=== PATIENT | female | born 1995 | race American Indian/Alaskan Native ===

== ENCOUNTER 2019-08-19 13:35 | Emergency (ER) | payer OTHER ==
[2019-08-19 15:19] VITALS: BP 110/62
--- NOTE | 2019-08-19 15:23 | Event Note ---
ED Screening Note ED Screening Note: 24 y/o c/o of chest pain after trip and fall landing on tile floor at work around 12 noon today. since had pain to chest worse with rom. This initial assessment/diagnostic orders/clinical plan/treatment(s) is/are subject to change based on patients health status, clinical progression and re- assessment by fellow clinical providers in the ED. Further treatment and workup at subsequent clinical providers discretion. Patient/guardian urged not to elope from the ED as their condition may be serious if not clinically assessed and managed. Initial orders include:
--- NOTE | 2019-08-19 16:03 | XRay Report ---
CHEST 2 VIEWS INDICATION: chest pain after fall. COMPARISON: None. FINDINGS: Support devices: None. Heart: Within normal limits. Pulmonary vasculature: Normal. Lungs/pleura: No acute air space or interstitial disease. No pneumothorax. Additional findings: Thoracic scoliosis. No fracture. IMPRESSION: 1. No acute findings. Signer Name: Bernard Carpenter MD Signed: 08/19/2019 3:58 PM Workstation Name: [id number]
--- NOTE | 2019-08-19 16:19 | Emergency Department Report ---
HPI - General Chief Complaint: Fall Time Seen by Provider: 08/19/19 15:21 - HPI HPI: 24-year-old -[place] female presents to the emergency department with a complaint of some midsternal chest discomfort after tripping and falling at work and hitting her chest on the hard floor. She also hit her left leg, around the randall, and says that she had some mild bruising and swelling but that has since improved. She has been ambulatory without any difficulty since this incident. She took some Aleve for her symptoms with some improvement. She denies any shortness of breath. She denies hitting her head or any loss of consciousness. No past medical history. ED Past Medical Hx - Past Medical History Previous Medical History?: No - Surgical History Past Surgical History?: No - Social History Smoking Status: Never Smoker Substance Use Type: None ED Review of Systems ROS: Stated complaint: FALL INJURY/CHEST PAIN Other details as noted in HPI Comment: All other systems reviewed and negative Constitutional: denies: malaise, weakness Respiratory: denies: cough, shortness of breath Cardiovascular: chest pain (chest wall pain). denies: syncope Gastrointestinal: denies: abdominal pain Musculoskeletal: myalgia. denies: back pain, joint swelling Skin: denies: rash, pruritus Neurological: denies: headache, weakness Physical Exam - Physical Exam Vital Signs: Vital Signs 08/19/19 15:16 Temperature 98.8 F Pulse Rate 72 Respiratory 18 Rate Blood Pressure 110/62 O2 Sat by Pulse 96 Oximetry Physical Exam: GENERAL: The patient is well-developed well-nourished. HEENT: Normocephalic. Atraumatic. Patient has moist mucous membranes. EYES: Extraocular motions are intact. NECK: Supple. Trachea is midline. CHEST/LUNGS: Clear to auscultation. There is no respiratory distress noted. There is some reproducible midsternal chest wall pain to palpation but no crepitus or deformity. HEART/CARDIOVASCULAR: Regular. There is no tachycardia. There is no murmur. ABDOMEN: There is no abdominal distention. SKIN:Skin is warm and dry. . NEURO: The patient is awake, alert, and oriented. The patient is cooperative. The patient has no focal neurologic deficits. Normal speech. MUSCULOSKELETAL: Mild tenderness to palpation to the left tib-fib but no obvious deformity. There is no limitation range of motion. ED Course Vital Signs 08/19/19 15:16 Temperature 98.8 F Pulse Rate 72 Respiratory 18 Rate Blood Pressure 110/62 O2 Sat by Pulse 96 Oximetry ED Medical Decision Making - Radiology Data Radiology results: image reviewed interpreted by me: Chest x-ray does not show any pleural effusions, pneumonia, pneumothorax, focal consolidation, or any other acute process. - Medical Decision Making This patient presents to the emergency department after falling at work and hitting her chest and left randall. While she said that there was some swelling and bruising to the left randall I could not appreciate any significant skin changes and certainly there are no obvious deformities. Patient has been ambulatory and does not feel that there is any significant injury to this area and did not want an x-ray done when it was offered. She did have a chest x-ray completed that did not show any fractures, pneumothorax, subcutaneous air or any other acute process. Vital signs stable. Patient will use some dyph-vra-nwatcuk anti-inflammatories as needed. She has been given a referral for orthopedist. She will return to the ER with any worsening of her symptoms or any acute distress. - Differential Diagnosis contusion, pneumothorax, rib fracture Critical Care Time: No Critical care attestation.: If time is entered above; I have spent that time in minutes in the direct care of this critically ill patient, excluding procedure time. ED Disposition Clinical Impression: Chest wall pain Fall Qualifiers: Encounter type: initial encounter Qualified Code(s): W19.XXXA - Unspecified fall, initial encounter Chest wall contusion Qualifiers: Encounter type: initial encounter Laterality: unspecified laterality Qualified Code(s): S20.219A - Contusion of unspecified front wall of thorax, initial encounter Contusion of leg, left Qualifiers: Encounter type: initial encounter Qualified Code(s): S80.12XA - Contusion of left lower leg, initial encounter Disposition: - TO HOME OR SELFCARE Is pt being admited?: No Condition: Stable Instructions: Contusion in Adults (ED) Additional Instructions: Please follow up with a primary care physician in the next few days. Return to the emergency Department with any worsening of your symptoms or any acute distress. I am giving you a referral for a local orthopedist, Dr. Stevens, in case you need to follow up regarding your leg pain. Referrals: AYSE STEVENS MD [Staff Physician] - 2-3 Days [facility] [Outside] - 2-3 Days Time of Disposition: 16:19
== END 2019-08-19 16:43 | disposition home or self-care (01) ==
LOC: ED 13:35
DX: S20.219A Contusion of unspecified front wall of thorax, initial encounter (principal); S80.12XA Contusion of left lower leg, initial encounter; W01.0XXA Fall on same level from slipping, tripping and stumbling without subsequent striking against object, initial encounter; Y93.89 Activity, other specified; Y92.89 Other specified places as the place of occurrence of the external cause; Y99.8 Other external cause status
CPT/HCPCS: 71046